=== PATIENT | male | born 1955 | race Caucasian/White ===

== ENCOUNTER → 2024-06-09 13:32 | Outpatient (REF) | payer MEDICARE, SELFPAY | LOC: HWRAD 13:32 | PROVIDERS: ATTENDING PHYSICIAN Physician Assistant | DX: F17.210 Nicotine dependence, cigarettes, uncomplicated (principal) | CPT/HCPCS: 71271 ==

== ENCOUNTER → 2025-01-27 14:18 | Outpatient (REF) | payer MEDICARE, SELFPAY | LOC: HWRAD 14:18 | PROVIDERS: ATTENDING PHYSICIAN Physician Assistant | DX: F17.200 Nicotine dependence, unspecified, uncomplicated (principal); E78.00 Pure hypercholesterolemia, unspecified | CPT/HCPCS: 75571 ==